=== PATIENT | female | born 2000 | race Caucasian/White ===

== ENCOUNTER 2021-02-20 20:41 | Emergency (ER) | payer OTHER, SELFPAY ==
[2021-02-20 21:02] VITALS: BP 116/82; PULSE 99; RESP 18; TEMP 36.4; O2SAT 100
[2021-02-20 21:16] VITALS: BP 128/76; PULSE 83; RESP 18; TEMP 36.9; O2SAT 97
--- NOTE | 2021-02-20 21:18 | PC.NURSE ---
Pt presents to ED with complaints of right lower back pain that radiates around to right lower abdomen. Pt states she was diagnosed with PID approx one year ago. Pt states current pain and symptoms mirrors last symptoms of PID. States she was recently screened for UTI and STDs and all test were negative. Pt denies pain and discomfort with urination, nausea, emesis and fever. Admits to chills and diarrhea x5 episodes today. Pt noted to afebrile at this time with stable vitals and pt is in no obvious distress at this time. Call button and personal items within reach. Pt advised to press call button for assistance.
--- NOTE | 2021-02-20 21:40 | PC.NURSE ---
Pt ambulated in [place] to provide urine specimen with steady gait noted. Pt now back in room resting on cart with stable vitals and in no obvious distress. Call button and personal items within reach. Advised to press call button for assistance. No questions or concerns at this time. Beside negative.
--- NOTE | 2021-02-20 22:35 | PC.NURSE ---
Pelvic exam completed. Pt tolerated well. No complaints or concerns voiced.
[2021-02-20] MEDS: KETOROLAC 30 MG/ML VIAL (*BKC) 60 MG IM (22:57)
[2021-02-20 23:44] LABS: Add Urine Microscopic? YES; Appearance Urine Clear (Clear); Bacteria Urine Trace /hpf; Bilirubin Urine Negative (Negative); Blood Urine Negative (Negative); Color Urine Yellow (Yellow); Glucose Urine UA Negative (Negative); Ketones Urine Negative (Negative); Leukocyte Esterase Ur Trace LEU/UL (Negative); Mucus Urine Rare /lpf; Nitrate Urine Negative (Negative); Protein Urine Negative (Negative); Specific Grav Ur 1.018 (1.001-1.035); Squamous Epithelial Cell Urine Moderate /hpf (Few); Urobilinogen Urine Negative mg/dL (<2.0)
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
[2021-02-21 00:34] VITALS: BP 105/71; PULSE 62; RESP 18; O2SAT 99
[2021-02-21] MEDS: AZITHROMYCIN 250 MG TABLET 1000 MG PO (00:35)
[2021-02-21] MEDS: metroNIDAZOLE 250 MG TABLET 2000 MG PO (00:35)
[2021-02-21] MEDS: cefTRIAXone 1 GM VIAL 0.5 GM IM (00:36)
== END 2021-02-21 01:07 | disposition home or self-care (01) ==
PROVIDERS: Emergency Provider Emergency Medicine
DX: M54.5 Low back pain (principal)
CPT/HCPCS: 81001; 81025; 87491; 87591; 96372; 99284; A9270; J0696; J1885

== ENCOUNTER 2023-06-24 09:16 | Emergency (ER) | payer OTHER, SELFPAY ==
[2023-06-24 09:17] VITALS: BP 122/85; PULSE 137; RESP 18; O2SAT 98
[2023-06-24 09:41] VITALS: BP 121/85; PULSE 108; RESP 14; TEMP 36.9; O2SAT 99
--- NOTE | 2023-06-24 09:57 | ED.GENADULT ---
[facility] - General Adult General Chief complaint: Unspecified Stated complaint: sick, n/v Time Seen by Provider: 06/24/23 09:38 Source: patient Mode of arrival: ambulatory Limitations: no limitations History of Present Illness HPI narrative: This is a 22-year-old female with no pertinent PMH who presents to the ED with chief complaint of body aches along with nausea for the past 2 to 3 days. Reports pain from head to toes. She reports that she has body aches all throughout the body. Reports she has been shaking with tremors for the past couple of days. She reports a fever of 102 ?F yesterday that resolved after taking a warm bath. Denies any known sick contact. Reports loss of appetite. Reports mild headache. Denies chest pain, shortness of breath, cough, abdominal pain, vomiting, diarrhea, urinary problems, sore throat, congestion. Related Data Allergies Allergy/AdvReac Type Severity Reaction Status Date / Time amoxicillin Allergy Unknown Verified 06/24/23 09:42 Review of Systems Review of Systems: All systems as dictated in [facility] Social History Social History Gender identity (if verbalized by the patient): Female Exam Narrative: GENERAL: Well-appearing, well-nourished, and in no acute distress. HEAD: Normocephalic, atraumatic. EYES: PERRLA and EOMI. ENT: Nares clear, no rhinorrhea or epistaxis. Mucous membranes moist. Oropharynx without tonsillar hypertrophy exudate or other lesions. NECK: Supple. No adenopathy or masses. Full range of motion in the neck. No meningeal signs. CHEST: No respiratory distress. Clear to auscultation. No wheezes rales or rhonchi HEART: Regular rate and rhythm. No murmur heard. Normal peripheral pulses. ABDOMEN: Negative flank tenderness bilaterally. Soft, nontender, nondistended, normal active bowel sounds. MSK: Normal range of motion. No edema. SKIN: Warm, dry, no rash. NEURO: Alert and oriented x3. No focal deficits. PSYCH: Normal mood and affect. Course Course Emergency Course: Reevaluation 1145: Patient is feeling much improved and would like to go home on oral antibiotics for this UTI seen on the labs. Pain is minimal at this point. Vital signs have normalized. Vital Signs Vital signs: Vital Signs Pulse Rate 137 H 06/24/23 09:17 Respiratory Rate 18 06/24/23 09:17 Blood Pressure 122/85 06/24/23 09:17 Pulse Oximetry 98 06/24/23 09:17 Temperature 98.4 F 06/24/23 09:41 Pulse Rate 100 06/24/23 11:26 Respiratory Rate 15 06/24/23 11:26 Blood Pressure 132/96 H 06/24/23 11:26 Pulse Oximetry 100 06/24/23 11:26 Medical Decision Making MDM Narrative Medical decision making narrative: This is a 22-year-old female who presents to the ED with chief complaint of body aches for the past couple of days. Vitals show initial tachycardia at 137 but hemodynamically stable. Afebrile. Exam is benign. There is no abdominal tenderness and no flank tenderness. Lab work shows initial white count of 19. CMP is unremarkable. UA shows overt urinary tract infection with positive nitrites, leuk esterase and 4+ bacteria. CRP elevated to 21.1. Patient improved greatly with fluids, Zofran and Toradol here. Abdominal exam remains benign. She feels ready to go home on reevaluation. Symptoms consistent with UTI. 2-week course of Bactrim given. Pt will be discharged in stable condition. Return precautions given and supportive measures discussed. Pt is understanding and agreeable with plan for discharge and follow-up with PCP. Vital Signs Vital Signs: Vital Signs Pulse Rate 137 H 06/24/23 09:17 Respiratory Rate 18 06/24/23 09:17 Blood Pressure 122/85 06/24/23 09:17 Pulse Oximetry 98 06/24/23 09:17 Temperature 98.4 F 06/24/23 09:41 Pulse Rate 100 06/24/23 11:26 Respiratory Rate 15 06/24/23 11:26 Blood Pressure 132/96 H 06/24/23 11:26 Pulse Oximetry 100 06/24/23 11:26 Lab Data 06/24/23 10:06
[2023-06-24 10:13] LABS: Basophils Percent Auto 0.2 % (0.2-1.2); Hematocrit 36.6 % (37.0-47.0); Hemoglobin 11.9 g/dL (12.0-15.0); Immature Granulocyte Absolute 0.11 K/mm3 (0.00-0.031); Immature Granulocyte Percent A 0.6 % (0-0.5); Lymphocytes Absolute Auto 1.43 K/mm3 (0.9-3.2); Lymphocytes Percent Auto 7.4 % (18.3-44.2); Mean Corpuscular HGB Conc 32.5 g/dl (32-36); Mean Corpuscular Hemoglobin 27.7 pg (26-34); Mean Corpuscular Volume 85.3 fl (80-100); Mean Platelet Volume 10.2 fl (7.4-10.4); Monocytes Absolute Auto 2.3 K/mm3 (0.1-0.6); Monocytes Percent Auto 12.1 % (2.6-8.5); Neutrophils Absolute Auto 15.4 K/mm3 (1.3-6.7); Neutrophils Percent Auto 79.7 % (45.5-73.1); Platelet Count Result 225 k/mm3 (150-375); Red Blood Count 4.29 M/mm3 (4.2-5.4); Red Cell Distribution Width 14.2 % (11.5-14.5); White Blood Count 19.3 K/mm3 (4.5-10.0)
[2023-06-24 10:17] LABS: Appearance Urine Clear (Clear); Bacteria Urine 4+ /hpf; Bilirubin Urine Negative (Negative); Blood Urine 1+ (Negative); Color Urine Yellow (Yellow); Glucose Urine UA Negative (Negative); Ketones Urine 1+ mg/dL (Negative); Leukocyte Esterase Ur 2+ LEU/UL (Negative); Need Manual Microscopic Reviewed; Nitrate Urine Positive (Negative); Protein Urine 2+ mg/dL (Negative); RBC Urine 0-2 /hpf (0-2); Specific Grav Ur 1.012 (1.001-1.035); Squamous Epithelial Cell Urine Few /hpf (Few); WBC Urine >100 /hpf; pH Urine 5.5 (5.0-9.0)
[2023-06-24] MEDS: ONDANSETRON INJ 4 MG/2 ML VIAL IV PUSH (10:17)
[2023-06-24] MEDS: KETOROLAC 15 MG/ML VIAL (*BKC) IV PUSH (10:17)
[2023-06-24 10:23] LABS: Alanine Aminotransferase 34 U/L (6-35); Albumin Level 4.5 g/dL (3.5-5.1); Alkaline Phosphatase 92 U/L (38-126); Anion Gap 11 mmol/L (8-16); Aspartate Amino Transferase 33 U/L (14-36); Bilirubin,Total 1.6 mg/dL (0.2-1.3); Blood Urea Nitrogen 8 mg/dL (7-17); Calcium 9.2 mg/dL (8.4-10.2); Carbon Dioxide 23 mmol/L (22-30); Chloride 98 mmol/L (98-107); Estimated CRCL calculation 113 ml/min; Estimated Glomerular Filt Rate > 60; Glucose 115 mg/dL (65-110); Lipase 24 U/L (23-300); Potassium 3.4 mmol/L (3.4-5.0); Sodium 132 mmol/L (137-145)
[2023-06-24 10:24] LABS: Add Urine Microscopic? YES
[2023-06-24 10:48] LABS: Influenza A QL RT-PCR Negative (Negative); Influenza B QL RT-PCR Negative (Negative); RSV RNA, RT-PCR Negative (Negative); SARS-CoV-2 RNA PCR Negative (Negative)
[2023-06-24] MEDS: SODIUM CHLORIDE 0.9% IV 1,000 ML 999 ML IV CONT (10:53)
[2023-06-24 11:11] LABS: INR 1.1; Prothrombin Time 14.7 Seconds (11.1-14.7)
[2023-06-24 11:12] LABS: Partial Thromboplastin Time 35.1 SECONDS (22.3-36.8)
[2023-06-24 11:16] LABS: Lactic Acid Reflex 0.8 mmol/L (0.7-2.0)
[2023-06-24 11:26] VITALS: BP 132/96; PULSE 100; RESP 15; O2SAT 100
[2023-06-24 11:35] LABS: CRP 21.1 mg/dL (<1.0)
--- NOTE | 2023-06-28 10:00 | PC.NURSE ---
LATE ENTRY This note is being entered to document information to the patient's record. The following information was omitted on [06/24/23], by [PREETI Da Silva]. NS ENDED AT 8300
== END 2023-06-24 12:35 | disposition home or self-care (01) ==
PROVIDERS: Emergency Provider Physician Assistant
DX: N39.0 Urinary tract infection, site not specified (principal); Z20.822 Contact with and (suspected) exposure to COVID-19
CPT/HCPCS: 36415; 80053; 81001; 81025; 83605; 83690; 85025; 85610; 85730; 86140; 87040; 87077; 87086; 87088; 87186; 87637; 96365; 96375; 99284; J0696; J1885; J2405; J7030